=== PATIENT | female | born 1995 | race Caucasian/White ===

== ENCOUNTER 2016-12-05 10:44 | Emergency (ER) | payer OTHER ==
[~2016-12-05] VITALS: Ht 157.5 cm; Wt 63.5 kg
[~2016-12-05 10:44] MED LIST: ACYCLOVIR 400400 MG PO; IBUPROFEN 600600 M1 PO; ONDANSETRON HCL4 M2 PO
[2016-12-05 11:17] LABS: URINE BILIRUBIN NEGATIVE (Negative); URINE BLOOD NEGATIVE (Negative); URINE COLOR YELLOW; URINE GLUCOSE-RANDOM* NEGATIVE (Negative); URINE KETONES NEGATIVE (Negative); URINE NITRITE NEGATIVE (Negative); URINE PROTEIN (DIPSTICK) NEGATIVE (Negative); URINE UROBILINOGEN 0.2 E.U./dl (0.2-1.0)
[2016-12-05 11:25] LABS: SQUAMOUS >10 Many /LPF (0-3)
[2016-12-05 11:26] LABS: BACTERIA 1-9 Few /HPF (None Seen); CASTS None Seen /LPF (None Seen); CRYSTALS None Seen /LPF (None Seen); URINE RBC None Seen /HPF (0-2)
[2016-12-05] MEDS ORDERED: IBUPROFEN 600600 M1 PO (11:51)
[2016-12-05] MEDS ORDERED: ZOFRAN ODT4 M1 PO (11:51)
[2016-12-05] MEDS ORDERED: KEFLEX500 MG PO (11:51)
[2016-12-05 12:17] VITALS: BP 132/62
== END 2016-12-05 12:19 | disposition home or self-care (01) ==
LOC: ER 10:44
PROVIDERS: Nurse Practitioner Family
DX: J04.0 Acute laryngitis (principal); N39.0 Urinary tract infection, site not specified; B34.9 Viral infection, unspecified; Z88.1 Allergy status to other antibiotic agents

== ENCOUNTER 2016-12-13 19:37 | Inpatient (IN) | payer OTHER ==
[~2016-12-13] VITALS: Ht 157.5 cm; Wt 65.8 kg
--- NOTE | ~2016-12-13 | HC ---
[facility] [place] [address] CONSULTATION Name: SHANNAN CARPENTER Room #: 403-P [facility] [place] .R.#: [id number] Admission: 12/13/16 Attend Phys: Hiren Maldonado MD Discharge: Date of : 89 Report #: [id number] THIS REPORT FOR: //name// CC: RUIZ physician/PCP Hiren Maldonado DATE OF SERVICE: 12/14/2016 HISTORY OF PRESENT ILLNESS: This 21-year-old female who has a history of recurrent urinary tract infection, failure of outpatient therapy, has had some recent diarrhea, mild abdominal pain and subjective fever. Main complaint has been episodes of numbness bilateral arms and legs with the legs more than the arms. She has symptoms primarily in her legs and her trunk. At times, she feels the numbness is so intensive that her legs felt weak. No visual changes. No swallowing issues. She has gone down for an MRI with results pending. Neurology had noted what appeared to be sensory level at T4. We are seeing her in rehabilitation medicine consultation. PAST MEDICAL HISTORY: Preemie born at 4 months, previous GI issues but resolved as far as gastroenteritis, history of herpes dermatitis, she has had a gallbladder infection and urinary tract infection. MEDICATIONS: Please see the full medication listing. HABITS: No history of tobacco, alcohol abuse. FAMILY HISTORY: No pertinent. ALLERGIES: UNKNOWN ANTIBIOTICS. SOCIAL HISTORY: Lives in a house, renting out basement, 14 steps down. 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 REVIEW OF SYSTEMS: Did not offer any current complaints of chest pain, shortness of breath or abdominal discomfort. PHYSICAL EXAMINATION: GENERAL: A 21-year-old slender female, in no obvious distress. She is alert, pleasant. HEENT: Appeared to be benign. EPMs appeared full. No obvious visual field neglect to comfort rotation. VITAL SIGNS: Temperature is 98.2, pulse 65, respirations 17, blood pressure 102/57. NEUROLOGIC: She has functional range of motion of both upper extremities with strength grade 5/5. Lower extremities: She appeared to have good strength 5/5. Usrxlz-la-onhh appeared intact. DTRs were 1-2. There was no clonus at the [facility] [address] [place] [address] CONSULTATION Name: SHANNAN CARPENTER Room #: [facility] [place] [facility].#: [id number] Admission: 12/13/16 Attend Phys: Hiren Maldonado MD Discharge: Date of : 89 Report #: [id number] ankles. Sensation did reveal intact to my exam with simultaneous stimulation of the upper and lower extremities, although she might have some decreased proprioception of her right large toe. I did not ambulate her, although she has been getting up and going back and forth to the bathroom with nursing, she indicates. ASSESSMENT: A 21-year-old female with intermittent paresthesias of the lower extremities more than the upper extremities. Neurology has noted a sensory level at T4. She is undergoing MRI testing and has had a lumbar puncture done. RECOMMENDATIONS: PT and OT orders are added. We will be glad to follow along with you regarding her rehab therapy needs. ADDENDUM I am going to hold off on ordering the physical therapy and occupational therapy until her neuro workup has been completed. Note that there is consideration for imaging her spine if the MRI of the brain is unremarkable. By: [id number] Lewis Torres MD /
[~2016-12-13 19:37] MED LIST changes: +KEFLEX500 MG PO; +ZOFRAN ODT4 M1 PO
[2016-12-13 19:38] VITALS: BP 132/91
[2016-12-13 20:00] LABS: URINE BILIRUBIN NEGATIVE (Negative); URINE BLOOD NEGATIVE (Negative); URINE COLOR YELLOW; URINE GLUCOSE-RANDOM* NEGATIVE (Negative); URINE KETONES NEGATIVE (Negative); URINE NITRITE NEGATIVE (Negative); URINE PROTEIN (DIPSTICK) NEGATIVE (Negative); URINE UROBILINOGEN 0.2 E.U./dl (0.2-1.0)
[2016-12-13 20:11] LABS: CASTS None Seen /LPF (None Seen); CRYSTALS None Seen /LPF (None Seen); SQUAMOUS 4-10 Moderate /LPF (0-3); URINE RBC None Seen /HPF (0-2); URINE WBC 6-15 Few /HPF (0-5)
[2016-12-13 20:12] LABS: BACTERIA 1-9 Few /HPF (None Seen)
[2016-12-13 20:34] LABS: BASOPHILS 0.7 % (0.0-2.0); EOSINOPHILS 2.7 % (0.0-3.0); HEMATOCRIT 41.3 % (37.0-47.0); HEMOGLOBIN 13.6 gm/dL (12.0-15.0); LYMPHOCYTES 37.3 % (24.0-44.0); MANUAL DIFF NO; MCH 28.2 pg (26.0-34.0); MCHC 32.9 g/dL (28.0-37.0); MCV 85.7 fL (80.0-100.0); MONOCYTES 8.4 % (1.0-8.0); PLATELET COUNT 218 thou/uL (150-400); POLYS 50.9 % (36.0-66.0); RBC 4.82 mil/uL (4.20-5.00); WBC 11.9 thou/uL (4.0-11.0)
[2016-12-13 20:42] LABS: CALCIUM 8.7 mg/dL (8.5-10.1); CREATININE 0.7 mg/dL (0.6-1.0); POTASSIUM 3.5 mmol/L (3.5-5.1)
[2016-12-13 20:47] LABS: ALBUMIN 3.6 g/dL (3.4-5.0); TOTAL BILIRUBIN 0.2 mg/dL (<0.1-1.0); TOTAL PROTEIN 7.1 g/dL (6.4-8.2)
[2016-12-13 21:40] LABS: CSF GLUCOSE 55 mg/dL (40-70)
[2016-12-13 21:50] LABS: CSF CLARITY CLEAR; CSF COLOR COLORLESS; CSF WBC 1 /mm3 (0-10); MANUAL DIFF NO; NUMBER OF TUBES 4; VOLUME 4 ml
[2016-12-13 22:56] VITALS: BP 106/61
[2016-12-13 23:18] VITALS: BP 99/61
[2016-12-13 23:32] VITALS: BP 116/71
[2016-12-14 04:18] LABS: HEMATOCRIT 38.8 % (37.0-47.0); HEMOGLOBIN 12.9 gm/dL (12.0-15.0); MCH 28.6 pg (26.0-34.0); MCHC 33.4 g/dL (28.0-37.0); MCV 85.6 fL (80.0-100.0); RBC 4.53 mil/uL (4.20-5.00); RDW 13.5 % (10.5-14.5); WBC 11.8 thou/uL (4.0-11.0)
[2016-12-14 04:22] LABS: CALCIUM 8.3 mg/dL (8.5-10.1); CREATININE 0.7 mg/dL (0.6-1.0); POTASSIUM 3.7 mmol/L (3.5-5.1)
[2016-12-14 05:26] VITALS: BP 103/57
[2016-12-14 07:25] VITALS: BP 102/57
[2016-12-14 16:50] VITALS: BP 97/64
[2016-12-14 20:11] VITALS: BP 107/59
[2016-12-15 04:20] VITALS: BP 100/56
[2016-12-15 07:23] VITALS: BP 102/62
[2016-12-15 13:35] VITALS: BP 102/62
[2016-12-15 13:47] LABS: ABSOLUTE NEUTROPHILS 4.3 thou/uL (1.4-8.2); BASOPHILS 0.8 % (0.0-2.0); EOSINOPHILS 2.8 % (0.0-3.0); HEMATOCRIT 40.3 % (37.0-47.0); HEMOGLOBIN 13.5 gm/dL (12.0-15.0); LYMPHOCYTES 37.3 % (24.0-44.0); MANUAL DIFF NO; MCH 28.8 pg (26.0-34.0); MCHC 33.4 g/dL (28.0-37.0); MCV 86.1 fL (80.0-100.0); MONOCYTES 7.1 % (1.0-8.0); PLATELET COUNT 204 thou/uL (150-400); RBC 4.68 mil/uL (4.20-5.00); WBC 8.2 thou/uL (4.0-11.0)
[2016-12-15 14:02] LABS: CREATININE 0.7 mg/dL (0.6-1.0); POTASSIUM 3.6 mmol/L (3.5-5.1)
[2016-12-15] MEDS ORDERED: CEFDINIR300 MG PO (15:33)
[2016-12-16] MEDS ORDERED: BUTALB-APAP-CA1 EACH PO (21:25)
[2016-12-16] MEDS ORDERED: ZOFRAN ODT8 MG PO (21:25)
== END 2016-12-15 16:21 | disposition home or self-care (01) | DRG 690 ==
LOC: ER 19:37 → 4N 22:19 → EROBS 22:19 → 4N 23:19
PROVIDERS: Hospitalist; Nurse Practitioner Family; Physician Assistant
PROC: 009U3ZX Drainage of Spinal Canal, Percutaneous Approach, Diagnostic (ICD-10-PCS; principal; 2016-12-13)
DX: N39.0 Urinary tract infection, site not specified (principal); G83.14 Monoplegia of lower limb affecting left nondominant side; G83.13 Monoplegia of lower limb affecting right nondominant side; B34.9 Viral infection, unspecified; Z87.440 Personal history of urinary (tract) infections; Z88.1 Allergy status to other antibiotic agents
CPT/HCPCS: 10091

== ENCOUNTER 2016-12-16 18:49 | Emergency (ER) | payer OTHER ==
[~2016-12-16] VITALS: Ht 157.5 cm; Wt 63.5 kg
[~2016-12-16 18:49] MED LIST changes: +CEFDINIR300 MG PO
[2016-12-16 20:00] LABS: URINE BILIRUBIN NEGATIVE (Negative); URINE BLOOD NEGATIVE (Negative); URINE COLOR YELLOW; URINE GLUCOSE-RANDOM* NEGATIVE (Negative); URINE KETONES 3+ (Negative); URINE PROTEIN (DIPSTICK) TRACE (Negative); URINE SPECIFIC GRAVITY 1.025 (1.003-1.035); URINE UROBILINOGEN 0.2 E.U./dl (0.2-1.0)
[2016-12-16 20:00] LABS: ABSOLUTE NEUTROPHILS 10.5 thou/uL (1.4-8.2); BASOPHILS 0.5 % (0.0-2.0); EOSINOPHILS 0.2 % (0.0-3.0); HEMATOCRIT 41.1 % (37.0-47.0); LYMPHOCYTES 16.3 % (24.0-44.0); MCH 28.8 pg (26.0-34.0); MCV 84.7 fL (80.0-100.0); MONOCYTES 5.1 % (1.0-8.0); PLATELET COUNT 209 thou/uL (150-400); POLYS 77.9 % (36.0-66.0); RBC 4.85 mil/uL (4.20-5.00); RDW 13.9 % (10.5-14.5); WBC 13.5 thou/uL (4.0-11.0)
[2016-12-16 20:05] LABS: MANUAL DIFF NO
[2016-12-16 20:08] LABS: URINE LEUKOCYTES-REFLEX 2+ (Negative)
[2016-12-16 20:09] LABS: SQUAMOUS >10 Many /LPF (0-3); URINE RBC None Seen /HPF (0-2); URINE WBC-REFLEX 6-15 Few /HPF (0-5)
[2016-12-16 20:10] LABS: CASTS None Seen /LPF (None Seen); CRYSTALS None Seen /LPF (None Seen)
[2016-12-16 20:13] LABS: ALBUMIN 3.8 g/dL (3.4-5.0); CALCIUM 8.8 mg/dL (8.5-10.1); CREATININE 0.8 mg/dL (0.6-1.0); POTASSIUM 3.3 mmol/L (3.5-5.1); TOTAL BILIRUBIN 0.5 mg/dL (<0.1-1.0); TOTAL PROTEIN 7.4 g/dL (6.4-8.2)
[2016-12-16] MEDS ORDERED: ZOFRAN ODT8 MG PO (21:25)
[2016-12-16] MEDS ORDERED: BUTALB-APAP-CA1 EACH PO (21:25)
== END 2016-12-16 22:07 | disposition home or self-care (01) ==
LOC: ER 18:49
PROVIDERS: Emergency Medicine
DX: G44.209 Tension-type headache, unspecified, not intractable (principal); N39.0 Urinary tract infection, site not specified; R19.7 Diarrhea, unspecified; E87.6 Hypokalemia; Z87.440 Personal history of urinary (tract) infections; Z88.1 Allergy status to other antibiotic agents